=== PATIENT | female | born 1985 | race African-American/Black ===

== ENCOUNTER 2016-11-05 12:28 | Emergency (ER) | payer OTHER ==
[2016-11-05 12:37] VITALS: BP 129/77
--- NOTE | 2016-11-05 13:19 | ER Document Report ---
ED Medical Screen (RME) - General Chief Complaint: Skin Problem Stated Complaint: HEADACHES/STIFF NECK/CHEST PAIN Time Seen by Provider: 11/05/16 13:14 Mode of Arrival: Ambulatory Information source: Patient TRAVEL OUTSIDE OF THE [place] IN LAST 30 DAYS: No - HPI Patient complains to provider of: JARRETT/facial numbness Onset: Other - Pt with c/o JARRETT for the past 1-2 days with neck stiffness yesterday. Saw a tick crawling on her skin yesterday but did not become embedded. Denies fever - Related Data Allergies/Adverse Reactions: No Known Allergies Allergy (Verified 11/05/16 12:36) Past Medical History - Social History Chew tobacco use (# tins/day): No Frequency of alcohol use: None Drug Abuse: None Neurological Medical History: Reports: Hx Migraine Renal/ Medical History: Denies: Hx Peritoneal Dialysis Psychiatric Medical History: Reports: Hx Post Traumatic Stress Disorder Past Surgical History: Reports: Hx Breast Surgery - reduction - Immunizations Hx Diphtheria, Pertussis, Tetanus Vaccination: Yes Physical Exam - Vital signs Vitals: Temp Pulse Resp BP Pulse Ox 98.1 F 77 18 129/77 H 98 11/05/16 12:36 11/05/16 12:36 11/05/16 12:36 11/05/16 12:36 11/05/16 12:36 Course - Vital Signs Vital signs: Temp Pulse Resp BP Pulse Ox 98.1 F 77 18 129/77 H 98 11/05/16 12:36 11/05/16 12:36 11/05/16 12:36 11/05/16 12:36 11/05/16 12:36
[2016-11-05 13:46] LABS: ABSOLUTE EOSINOPHILS # (AUTO) 0.1 10^3/uL (0.0-0.6); ABSOLUTE LYMPHOCYTES (AUTO) 2.2 10^3/uL (0.5-4.7); ABSOLUTE MONOCYTES (AUTO) 0.4 10^3/uL (0.1-1.4); ABSOLUTE NEUT (AUTO) 3.3 10^3/uL (1.7-8.2); APPEARANCE,URINE CLEAR; BASOPHILS % (AUTO) 0.3 % (0-2); BILIRUBIN,URINE NEGATIVE (NEGATIVE); GLUCOSE, URINE NEGATIVE (NEGATIVE); HEMATOCRIT 36.7 % (36.0-47.0); HEMOGLOBIN 11.3 g/dL (12.0-15.5); HGB HCT DIFFERENCE -2.8; KETONES,URINE NEGATIVE (NEGATIVE); LEUKOCYTE ESTERASE,URINE NEGATIVE (NEGATIVE); LYMPHOCYTES % (AUTO) 36.8 % (13-45); MEAN CORPUSCULAR HEMOGLOBIN 22.7 pg (27.0-33.4); MEAN CORPUSCULAR HGB CONC 30.8 g/dL (32.0-36.0); MEAN CORPUSCULAR VOLUME 74 fl (80-97); MONOCYTES % (AUTO) 6.3 % (3-13); NITRITE,URINE NEGATIVE (NEGATIVE); PROTEIN,URINE NEGATIVE (NEGATIVE); RED BLOOD COUNT 4.98 10^6/uL (3.72-5.28); RED CELL DISTRIBUTION WIDTH 19.1 % (11.5-14.0); SEGMENTED NEUTROPHILS % (AUTO) 54.6 % (42-78); URINE SPECIFIC GRAVITY 1.015; UROBILINOGEN,URINE NEGATIVE mg/dL (<2.0); WHITE BLOOD COUNT 6.1 10^3/uL (4.0-10.5)
--- NOTE | 2016-11-05 13:57 | RADIOLOGY REPORT (SQ) ---
EXAM DESCRIPTION: CT HEAD WITHOUT COMPLETED DATE/TIME: 11/05/2016 1:41 pm REASON FOR STUDY: JARRETT/facial numbness COMPARISON: 2015. TECHNIQUE: Axial images acquired through the brain without intravenous contrast. Images reviewed wi th bone, brain and subdural windows. Images stored on PACS. All CT scanners at this facility use dose modulation, iterative reconstruction, and/or weight based d osing when appropriate to reduce radiation dose to as low as reasonably achievable (ALARA). [facility]: Dose Right [facility]: CareDose [facility]: Dose Right [facility]: Teradose 4D [facility]: Smart Ailvxing net RADIATION DOSE: Up-to-date CT equipment and radiation dose reduction techniques were employed. CTDIv ol: 64.6 mGy. DLP: 1163 mGy-cm. mGy. LIMITATIONS: None. FINDINGS: VENTRICLES: Normal size and contour. CEREBRUM: No masses. No hemorrhage. No midline shift. Normal godoy/white matter differentiation. N o evidence for acute infarction. CEREBELLUM: No masses. No hemorrhage. No alteration of density. No evidence for acute infarction. EXTRAAXIAL SPACES: No fluid collections. No masses. ORBITS AND GLOBE: No intra- or extraconal masses. Normal contour of globe without masses. CALVARIUM: No fracture. PARANASAL SINUSES: No fluid or mucosal thickening. SOFT TISSUES: No mass or hematoma. OTHER: No other significant finding. IMPRESSION: NORMAL BRAIN CT WITHOUT CONTRAST. TECHNICAL DOCUMENTATION: JOB ID: [id number] Quality ID # [id number]: Final reports with documentation of one or more dose reduction techniques (e.g., Au tomated exposure control, adjustment of the mA and/or kV according to patient size, use of iterative reconstruction technique) 2010 [employer]- All Rights Reserved
[2016-11-05 14:00] LABS: ALANINE AMINOTRANSFERASE 30 U/L (9-52); ALBUMIN 4.5 g/dL (3.5-5.0); ALKALINE PHOSPHATASE 71 U/L (38-126); ANION GAP 12 (5-19); ASPARTATE AMINO TRANSFERASE 27 U/L (14-36); BILIRUBIN,DIRECT 0.2 mg/dL (0.0-0.4); BILIRUBIN,TOTAL 0.7 mg/dL (0.2-1.3); BLOOD UREA NITROGEN 8 mg/dL (7-20); CALCIUM 9.3 mg/dL (8.4-10.2); CARBON DIOXIDE 28 mmol/L (22-30); CHLORIDE 102 mmol/L (98-107); CREATININE RESULT 0.88 mg/dL (0.52-1.25); GLUCOSE 107 mg/dL (75-110); POTASSIUM 3.9 mmol/L (3.6-5.0); SODIUM 141.7 mmol/L (137-145); TOTAL PROTEIN 8.2 g/dL (6.3-8.2)
[2016-11-05] MEDS ORDERED: KETOROLAC TROMETHAMINE 60 MG/2 ML SDV IM ONE (14:08)
[2016-11-05] MEDS ORDERED: METOCLOPRAMIDE HCL 10 MG TABLET PO ONE (14:08)
--- NOTE | 2016-11-05 14:14 | ER Document Report ---
ED General - General Chief Complaint: Skin Problem Stated Complaint: HEADACHES/STIFF NECK/CHEST PAIN Time Seen by Provider: 11/05/16 13:14 Mode of Arrival: Ambulatory Notes: -year-old female presents with a constellation of symptoms. Primarily she noticed 3 itchy bug bites on her left forearm with swelling 3 days ago which she suspected were due to a tick because she saw a tick crawling on her chest. She did not see an embedded bug. Swelling is decreased and is now mild. No pain. Mild pruritus. She also began feeling fatigued for 3 days generalized weakness. This morning she woke up with chest pressure and left face tingling both of which are resolved. Yesterday and this morning she had a severe headache with right neck stiffness this is also resolved. No photophobia or vomiting. Migraine history. Never had Lyme disease. Denies fevers. Currently is much better than she was. Is not taking anything for migraines. TRAVEL OUTSIDE OF THE [place] IN LAST 30 DAYS: No - Related Data Allergies/Adverse Reactions: No Known Allergies Allergy (Verified 11/05/16 12:36) Past Medical History - General Information source: Patient - Reviewed nurse's notes - Social History Smoking Status: Former Smoker Chew tobacco use (# tins/day): No Frequency of alcohol use: None Drug Abuse: None Family History: None Neurological Medical History: Reports: Hx Migraine Renal/ Medical History: Denies: Hx Peritoneal Dialysis Psychiatric Medical History: Reports: Hx Post Traumatic Stress Disorder Past Surgical History: Reports: Hx Breast Surgery - reduction - Immunizations Hx Diphtheria, Pertussis, Tetanus Vaccination: Yes Review of Systems - Review of Systems Notes: REVIEW OF SYSTEMS GEN: Denies fever, chills, weight loss ENT: Denies sore throat, nasal discharge, ear pain EYES: Denies blurry vision, eye pain, discharge CV: Denies chest pain, palpitations, edema RESP: Denies cough, shortness of breath, wheezing GI: Denies abdominal pain, nausea, vomiting, diarrhea MSK: Denies joint pain/swelling, edema, SKIN: Denies rash, skin lesions LYMPH: Denies swollen glands/lymph nodes NEURO: Headache PSYCH: Denies depression, suicidal or homicidal ideation PHYSICAL EXAMINATION General: No acute distress, well-nourished Head: Atraumatic, normocephalic ENT: Mouth normal, oropharynx moist, no exudates or tonsillar enlargement Neck: No guarding normal movement supple without tenderness or spasm Eyes: Conjunctiva normal, pupils equal, lids normal Neck: No JVD, supple, no guarding CVS: Normal rate, regular rhythm, no murmurs Resp: No resp distress, equal and normal breath sounds bilaterally GI: Nondistended, soft, no tenderness to palpation, no rebound or guarding Ext: No deformities, no edema, normal range of motion in upper and lower ext Back: No CVA or midline TTP Skin: No rash, warm Lymphatic: No lymphadeopathy noted Neuro: Awake, alert. Face symmetric. GCS 15. No numbness. No pronator drift. Intact smile. Physical Exam - Vital signs Vitals: Temp Pulse Resp BP Pulse Ox 98.1 F 77 18 129/77 H 98 11/05/16 12:36 11/05/16 12:36 11/05/16 12:36 11/05/16 12:36 11/05/16 12:36 Course - Re-evaluation Re-evalutation: 11/05/16 14:13 Patient presents with vague symptoms of fatigue and resolving headache and neck stiffness with face tingling. Intact neuro exam. Migraine history. Did not see an embedded tick, and Lyme disease would not be this rapid. Also doubt meningitis due to lack of fever and resolving central nervous system symptoms. Her neck is supple today her when she has no meningismus that does not require lumbar puncture or imaging. In terms of her bug bite there is no sign of sialitis infection or abscess. Will give Toradol and Reglan, labs have been ordered already and I will await the results but did not require antibiotics and can be safely discharged. Reviewed and are all negative. I have discussed with the patient there likely diagnosis, aftercare plan, follow -up plans and my usual and customary return precautions. They verbalized understanding of this. 11/05/16 14:38 - Vital Signs Vital signs: Temp Pulse Resp BP Pulse Ox 98.1 F 77 18 129/77 H 98 11/05/16 12:36 11/05/16 12:36 11/05/16 12:36 11/05/16 12:36 11/05/16 12:36 - Laboratory Result Diagrams: 11/05/16 13:20 11/05/16 13:20 Laboratory results interpreted by me: 11/05/16 11/05/16 13:20 13:20 Hgb 11.3 L MCV 74 L MCH 22.7 L MCHC 30.8 L RDW 19.1 H Urine Ascorbic Acid 20 H Discharge - Discharge Clinical Impression: Insect bite Headache Qualifiers: Headache type: unspecified Headache chronicity pattern: acute headache Intractability: not intractable Qualified Code(s): R51 - Headache Disposition: HOME, SELF-CARE Instructions: Headache ([facility]) Additional Instructions: Your blood lites did not look infected and did not need antibiotics. I do not think you had a significant tick bite either, so Lyme disease is likely not what you have.
--- NOTE | 2016-11-05 14:49 | EKG REPORT ---
SEVERITY:- ABNORMAL ECG - SINUS RHYTHM FIRST DEGREE AV BLOCK PROBABLE LEFT ATRIAL ABNORMALITY : Confirmed by: Gabriel Blackburn MD 05-Nov-2016 14:48:34
== END 2016-11-05 14:47 | disposition home or self-care (01) ==
LOC: ER 12:28
DX: S50.862A Insect bite (nonvenomous) of left forearm, initial encounter (principal); W57.XXXA Bitten or stung by nonvenomous insect and other nonvenomous arthropods, initial encounter; R51 Headache; R53.1 Weakness; R53.83 Other fatigue; R07.89 Other chest pain; R20.2 Paresthesia of skin; M43.6 Torticollis; Z86.69 Personal history of other diseases of the nervous system and sense organs; Z87.891 Personal history of nicotine dependence
CPT/HCPCS: 93005; 99284; 96372; 36415; 85025; 81025; 80053; 81001; 84484; 70450; 93010; J1885

== ENCOUNTER 2018-03-23 08:48 | Emergency (ER) | payer OTHER ==
[2018-03-23] MEDS ORDERED: NAPROXEN 250 MG TABLET PO ONE (10:17)
[2018-03-23] MEDS ORDERED: METHOCARBAMOL 750 MG TABLET PO ONE (10:17)
[2018-03-23] MEDS ORDERED: ACETAMINOPHEN 325 MG TABLET PO ONE (10:17)
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
--- NOTE | 2018-03-23 11:00 | RADIOLOGY REPORT (SQ) ---
EXAM DESCRIPTION: SHOULDER RIGHT 2 OR MORE VIEWS COMPLETED DATE/TIME: 03/23/2018 10:50 am REASON FOR STUDY: right shoulder pain COMPARISON: None. NUMBER OF VIEWS: Three views. TECHNIQUE: Internal rotation, external rotation, and Y view images acquired of the right shoulder. LIMITATIONS: None. FINDINGS: MINERALIZATION: Normal. BONES: No acute fracture or dislocation. No worrisome bone lesions. JOINTS: No dislocation. VISUALIZED LUNGS AND RIBS: No pneumothorax. No rib fracture. SOFT TISSUES: No radiopaque foreign body. OTHER: No other significant finding. IMPRESSION: NEGATIVE STUDY OF THE RIGHT SHOULDER. NO RADIOGRAPHIC EVIDENCE OF ACUTE INJURY. TECHNICAL DOCUMENTATION: JOB ID: [id number] [employer]- All Rights Reserved Reading location - IP/workstation name: [email or web address]
[2018-03-23 11:42] VITALS: BP 117/80
== END 2018-03-23 11:42 | disposition home or self-care (01) ==
LOC: ER 08:48
DX: M25.511 Pain in right shoulder (principal); M54.2 Cervicalgia; V89.2XXA Person injured in unspecified motor-vehicle accident, traffic, initial encounter
CPT/HCPCS: 99283; 73030; J3490

== ENCOUNTER 2018-11-09 11:48 | Emergency (ER) | payer OTHER ==
--- NOTE | 2018-11-09 12:36 | ER Document Report ---
ED Medical Screen (RME) - General Chief Complaint: Chest Pain Stated Complaint: CHEST PAIN Time Seen by Provider: 11/09/18 12:30 Primary Care Provider: CATEHRINE ANDREWS MD [Primary Care Provider] - Follow up as needed TRAVEL OUTSIDE OF THE [place] IN LAST 30 DAYS: No - HPI Notes: 11/09/18 12:33 Patient is a 33-year-old female no significant past medical history who presents complaining of midsternal chest pain, pain between her shoulder blades, and left shoulder pain began today without precipitating event or injury. Patient states that movement makes her pain worse. Patient states that she does feel short of breath, but is primarily because she feels pain on deep inspiration. Denies drug allergies. Denies any prolonged immobilization, distance travel, recent surgery/trauma, personal cancer history, hormone use, smoking, or previous DVT/PE. Denies JARRETT, fever, neck pain, URI, Abd pain, dysuria, back pain, or rash. I have treated and performed a rapid initial assessment of this patient. A comprehensive ED assessment and evaluation of the patient, analysis of test results and completion of medical decision making process will be conducted by additional ED providers. PHYSICAL EXAMINATION: GENERAL: Well-appearing, well-nourished and in no acute distress. A&Ox4. Answers questions appropriately. Chest: + tenderness to palp. LUNGS: Breath sounds clear to auscultation bilaterally and equal. No wheezes rales or rhonchi. HEART: Regular rate and rhythm without murmurs, rubs, gallops. Extremities: No cyanosis, clubbing, or edema b/l. Radha negative bilaterally. No lower extremity asymmetry. NEUROLOGICAL: Normal speech, normal gait. PSYCH: Normal mood, normal affect. - Related Data Allergies/Adverse Reactions: No Known Allergies Allergy (Verified 11/09/18 11:52) Past Medical History Neurological Medical History: Reports: Hx Migraine Renal/ Medical History: Denies: Hx Peritoneal Dialysis Psychiatric Medical History: Reports: Hx Depression - Anxiety, Hx Post Traumatic Stress Disorder Past Surgical History: Reports: Hx Breast Surgery - reduction - Immunizations Hx Diphtheria, Pertussis, Tetanus Vaccination: Yes Physical Exam - Vital signs Vitals: Temp Pulse Resp BP Pulse Ox 98.5 F 73 18 124/94 H 100 11/09/18 11:54 11/09/18 11:54 11/09/18 11:54 11/09/18 11:54 11/09/18 11:54 Course - Vital Signs Vital signs: Temp Pulse Resp BP Pulse Ox 98.5 F 73 18 124/94 H 100 11/09/18 11:54 11/09/18 11:54 11/09/18 11:54 11/09/18 11:54 11/09/18 11:54 Doctor's Discharge - Discharge Referrals: CATHERINE ANDREWS MD [Primary Care Provider] - Follow up as needed
[2018-11-09 13:32] LABS: ABSOLUTE EOSINOPHILS # (AUTO) 0.1 10^3/uL (0.0-0.6); ABSOLUTE LYMPHOCYTES (AUTO) 1.9 10^3/uL (0.5-4.7); ABSOLUTE MONOCYTES (AUTO) 0.8 10^3/uL (0.1-1.4); ABSOLUTE NEUT (AUTO) 5.5 10^3/uL (1.7-8.2); BASOPHILS % (AUTO) 0.4 % (0-2); EOSINOPHILS % (AUTO) 1.1 % (0-6); HEMATOCRIT 39.1 % (36.0-47.0); HEMOGLOBIN 12.5 g/dL (12.0-15.5); LYMPHOCYTES % (AUTO) 22.7 % (13-45); MEAN CORPUSCULAR HGB CONC 31.9 g/dL (32.0-36.0); MEAN CORPUSCULAR VOLUME 81 fl (80-97); MONOCYTES % (AUTO) 9.3 % (3-13); PLATELET COUNT 274 10^3/uL (150-450); RED BLOOD COUNT 4.81 10^6/uL (3.72-5.28); RED CELL DISTRIBUTION WIDTH 15.7 % (11.5-14.0); SEGMENTED NEUTROPHILS % (AUTO) 66.5 % (42-78); TOTAL CELLS COUNTED % (AUTO) 100 %; WHITE BLOOD COUNT 8.2 10^3/uL (4.0-10.5)
--- NOTE | 2018-11-09 13:36 | EKG REPORT ---
SEVERITY:- ABNORMAL ECG - SINUS RHYTHM FIRST DEGREE AV BLOCK : Confirmed by: Gabriel Blackburn MD 09-Nov-2018 13:36:21
[2018-11-09 13:51] LABS: ALANINE AMINOTRANSFERASE 31 U/L (9-52); ALBUMIN 4.1 g/dL (3.5-5.0); ALKALINE PHOSPHATASE 63 U/L (38-126); ANION GAP 7 (5-19); ASPARTATE AMINO TRANSFERASE 29 U/L (14-36); BILIRUBIN,DIRECT 0.2 mg/dL (0.0-0.4); BILIRUBIN,TOTAL 0.6 mg/dL (0.2-1.3); BLOOD UREA NITROGEN 10 mg/dL (7-20); CALCIUM 9.3 mg/dL (8.4-10.2); CARBON DIOXIDE 29 mmol/L (22-30); CHLORIDE 105 mmol/L (98-107); POTASSIUM 4.9 mmol/L (3.6-5.0); TOTAL PROTEIN 6.8 g/dL (6.3-8.2)
[2018-11-09 13:52] LABS: GLUCOSE 69 mg/dL (75-110)
--- NOTE | 2018-11-09 14:05 | RADIOLOGY REPORT (SQ) ---
EXAM DESCRIPTION: CHEST 2 VIEWS COMPLETED DATE/TIME: 11/09/2018 1:20 pm REASON FOR STUDY: CP COMPARISON: 06/11/2013 EXAM PARAMETERS: NUMBER OF VIEWS: two views TECHNIQUE: Digital Frontal and Lateral radiographic views of the chest acquired. RADIATION DOSE: NA LIMITATIONS: none FINDINGS: LUNGS AND PLEURA: No opacities, masses or pneumothorax. No pleural effusion. MEDIASTINUM AND HILAR STRUCTURES: No masses or contour abnormalities. HEART AND VASCULAR STRUCTURES: Heart normal size. No evidence for failure. BONES: No acute findings. HARDWARE: None in the chest. OTHER: No other significant finding. IMPRESSION: No acute abnormality of the lungs. TECHNICAL DOCUMENTATION: JOB ID: [id number] [employer]- All Rights Reserved Reading location - IP/workstation name: [email or web address]
[2018-11-09] MEDS ORDERED: DIAZEPAM INJ 10 MG/2 ML DISP.SYRIN IV ONE (16:44)
[2018-11-09] MEDS ORDERED: KETOROLAC TROMETHAMINE INJ/PF 30 MG/1 ML SDV IV ONE (16:45)
--- NOTE | 2018-11-09 16:49 | ER Document Report ---
ED General - General Chief Complaint: Chest Pain Stated Complaint: CHEST PAIN Time Seen by Provider: 11/09/18 12:30 Primary Care Provider: CATHERINE ANDREWS MD [NO LOCAL MD] - Follow up as needed Mode of Arrival: Ambulatory Information source: Patient, ON LICENSE OF [facility] Records Notes: 33-year-old female with PTSD, migraine headaches, anxiety presents with complaint of chest and back pain that started this morning when she awoke. Patient's pain is located between her shoulder blades and substernally and described as a aching pain that is worse with movement and deep inspiration. Patient has had prior similar symptoms and was evaluated by cardiology in July of this year. She states [place] she had multiple similar episodes. She denies any recent illness, fever, chills, cough, nausea, vomiting, leg swelling, recent travel, estrogen use, recent surgery, history of PE, DVT. Patient denies any known injury. TRAVEL OUTSIDE OF THE [place] IN LAST 30 DAYS: No - HPI Onset: This morning Onset/Duration: Persistent Quality of pain: Sharp Severity: Moderate Pain Level: 2 Associated symptoms: Chest pain, Shortness of breath. denies: Chills, Nonproductive cough, Productive cough, Leg swelling, Nausea, Vomiting Exacerbated by: Movement, Deep breathing Relieved by: Remaining still Similar symptoms previously: Yes Recently seen / treated by doctor: Yes - Related Data Allergies/Adverse Reactions: No Known Allergies Allergy (Verified 11/09/18 11:52) Past Medical History - General Information source: Patient, ON LICENSE OF [facility] Records - Social History Smoking Status: Former Smoker Frequency of alcohol use: Occasional Drug Abuse: None Lives with: Family Family History: None Patient has suicidal ideation: No Patient has homicidal ideation: No Neurological Medical History: Reports: Hx Migraine Renal/ Medical History: Denies: Hx Peritoneal Dialysis Psychiatric Medical History: Reports: Hx Depression - Anxiety, Hx Post Traumatic Stress Disorder Past Surgical History: Reports: Hx Breast Surgery - reduction - Immunizations Hx Diphtheria, Pertussis, Tetanus Vaccination: Yes Review of Systems - Review of Systems Notes: REVIEW OF SYSTEMS: CONSTITUTIONAL : Denies fever, chills, or sweats. Denies recent illness. Denies weight loss, recent hospitalizations. EENT: Denies visual changes, eye pain. Denies sore throat, oral lesions, difficulty swallowing. CARDIOVASCULAR: + chest pain. Denies palpitations. Denies lower extremity edema. RESPIRATORY: Denies cough. Denies shortness of breath, wheezing. GASTROINTESTINAL: Denies abdominal pain or distention. Denies nausea, vomiting, or diarrhea. Denies blood in vomitus, stools, or per rectum. Denies black, tarry stools. Denies constipation. GENITOURINARY: Denies difficulty urinating, painful urination, frequency, blood in urine, or vaginal discharge. MUSCULOSKELETAL: Denies neck pain or stiffness. Denies joint pain or swelling. SKIN: Denies rash, lesions or sores. HEMATOLOGIC : Denies easy bruising or bleeding. LYMPHATIC: Denies swollen glands. NEUROLOGICAL: Denies confusion or altered mental status. Denies loss of consciousness. Denies dizziness or lightheadedness. Denies headache. Denies weakness or paralysis. Denies problems difficulty with ambulation, slurred speech. Denies sensory loss, numbness, or tingling. Denies seizures. PSYCHIATRIC: Denies anxiety or stress. Denies depression, suicidal ideation, or homicidal ideation. Denies visual or auditory hallucinations. Physical Exam - Vital signs Vitals: Temp Pulse Resp BP Pulse Ox 98.5 F 73 18 124/94 H 100 11/09/18 11:54 11/09/18 11:54 11/09/18 11:54 11/09/18 11:54 11/09/18 11:54 - Notes Notes: PHYSICAL EXAMINATION: GENERAL: Well-appearing, well-nourished and in no acute distress. HEAD: Atraumatic, normocephalic. EYES: Pupils equal round and reactive to light, extraocular movements intact, conjunctiva are normal. ENT: Nares patent, oropharynx clear without exudates. Moist mucous membranes. NECK: Normal range of motion, supple without lymphadenopathy LUNGS: Breath sounds clear to auscultation bilaterally and equal. No wheezes rales or rhonchi. Reproducible chest tenderness with palpation to the anterior chest. HEART: Regular rate and rhythm without murmurs ABDOMEN: Soft, nontender, nondistended abdomen. No guarding, no rebound. No masses appreciated. Female : deferred Musculoskeletal: Normal range of motion, no pitting or edema. No cyanosis. Tenderness with palpation to the paraspinal musculature of the thoracic spine bilaterally. NEUROLOGICAL: Cranial nerves grossly intact. Normal speech, normal gait. Normal sensory, motor exams PSYCH: Normal mood, normal affect. SKIN: Warm, Dry, normal turgor, no rashes or lesions noted. Course - Re-evaluation Re-evalutation: Laboratory 11/09/18 11/09/18 11/09/18 12:57 12:57 12:57 WBC 8.2 RBC 4.81 Hgb 12.5 Hct 39.1 MCV 81 MCH 26.0 L MCHC 31.9 L RDW 15.7 H Plt Count 274 Seg Neutrophils % 66.5 Lymphocytes % 22.7 Monocytes % 9.3 Eosinophils % 1.1 Basophils % 0.4 Absolute Neutrophils 5.5 Absolute Lymphocytes 1.9 Absolute Monocytes 0.8 Absolute Eosinophils 0.1 Absolute Basophils 0.0 Sodium 141.0 Potassium 4.9 Chloride 105 Carbon Dioxide 29 Anion Gap 7 BUN 10 Creatinine 1.03 Est GFR ( Amer) > 60 Est GFR (Non-Af Amer) > 60 Glucose 69 L Calcium 9.3 Total Bilirubin 0.6 Direct Bilirubin 0.2 Neonat Total Bilirubin Not Reportable Neonat Direct Bilirubin Not Reportable Neonat Indirect Bili Not Reportable AST 29 ALT 31 Alkaline Phosphatase 63 Troponin I < 0.012 Total Protein 6.8 Albumin 4.1 Serum HCG, Qual 11/09/18 12:57 WBC RBC Hgb Hct MCV MCH MCHC RDW Plt Count Seg Neutrophils % Lymphocytes % Monocytes % Eosinophils % Basophils % Absolute Neutrophils Absolute Lymphocytes Absolute Monocytes Absolute Eosinophils Absolute Basophils Sodium Potassium Chloride Carbon Dioxide Anion Gap BUN Creatinine Est GFR ( Amer) Est GFR (Non-Af Amer) Glucose Calcium Total Bilirubin Direct Bilirubin Neonat Total Bilirubin Neonat Direct Bilirubin Neonat Indirect Bili AST ALT Alkaline Phosphatase Troponin I Total Protein Albumin Serum HCG, Qual NEGATIVE Chest X-Ray 11/09/18 12:48 IMPRESSION: No acute abnormality of the lungs. Temp Pulse Resp BP Pulse Ox 98.5 F 73 18 124/94 H 100 11/09/18 11:54 11/09/18 11:54 11/09/18 11:54 11/09/18 11:54 11/09/18 11:54 11/09/18 16:47 33-year-old female presents with neck and chest pain that started this morning upon awakening. Vital signs reviewed and within normal limits. Patient does not appear toxic or dehydrated. She is in no acute distress. Previous medical records and nursing notes reviewed. Patient denies family history of early cardiac disease, . Patient is PERC negative. Pain is reproducible with palpation. CBC, CMP, cardiac enzymes are unremarkable. Chest x-ray shows no acute abnormality. Patient did receive Valium and Toradol and will be reevaluated. 11/09/18 16:49 HEART Score: History-1 ECG-0 Age-0 Risk Factors-0 Troponin-0 Total: 1 If HEART score is = 3 AND both troponin measurements are normal, the 30 day risk of a major adverse cardiac event (all-cause mortality, myocardial infarcti on or need for coronary revascularization) is < 1% (Sensitivity 100%, NPV 100%). Chest pain in a patient without evidence of cardiac or other serious etiology on workup today. I discussed with patient that, based on their age, risk factors and emergency department testing today, the likelihood that their symptoms are related to a heart attack is very low (estimated risk of heart attack or over the next 30 days of less than 1%). The patient demonstrates decision making capacity and has verbalized an understanding of these risks to me. Based on this, the patient has chosen to follow-up as an outpatient. Usual chest pain return precautions reviewed. The patient states understanding and agreement with this plan. - Vital Signs Vital signs: Temp Pulse Resp BP Pulse Ox 98.5 F 73 18 124/94 H 100 11/09/18 11:54 11/09/18 11:54 11/09/18 11:54 11/09/18 11:54 11/09/18 11:54 - Laboratory Result Diagrams: 11/09/18 12:57 11/09/18 12:57 Laboratory results interpreted by me: 11/09/18 11/09/18 12:57 12:57 MCH 26.0 L MCHC 31.9 L RDW 15.7 H Glucose 69 L - Diagnostic Test Radiology reviewed: Image reviewed, Reports reviewed - EKG Interpretation by Me EKG shows normal: Sinus rhythm Rate: Normal Rhythm: NSR Heart block present: 1st Degree When compared to previous EKG there are: No significant change Discharge - Discharge Clinical Impression: Chest pain Qualifiers: Chest pain type: unspecified Qualified Code(s): R07.9 - Chest pain, unspecified Back pain Qualifiers: Back pain location: thoracic back pain Chronicity: acute Back pain laterality: bilateral Qualified Code(s): M54.6 - Pain in thoracic spine Condition: Good Disposition: HOME, SELF-CARE Instructions: Chest Pain of Unclear Cause ([facility]), Upper Back Strain ([facility]) Additional Instructions: You were seen today for chest pain. The exact cause of your pain is unclear. However, based on your cardiac enzyme testing, chest x-ray, and EKG it does not appear that it is from an immediately life-threatening cause at this time. Although your testing here is normal is critical that you follow-up with your primary care physician for continued evaluation of this chest pain and possible stress testing. I recommended you see your physician within the next 24-48 hours to be evaluated for consideration of a stress test. Please return to emergency department immediately if you have worsening of your chest pain, shortness of breath, vomiting, become unable to exert yourself due to pain or difficulty breathing, you pass out, or have any pain that radiates into your arms, jaw, or back. Please also return if you have any additional symptoms that are concerning to you. Prescriptions: Hydrocodone/Acetaminophen [Stonewall 5-325 mg Tablet] 1 tab PO Q6H #12 tablet Ibuprofen [Motrin 600 Mg Tablet] 600 mg PO TID #15 tablet Forms: Elevated Blood Pressure Referrals: CATHERINE ANDREWS MD [NO LOCAL MD] - Follow up as needed
[2018-11-09 18:29] VITALS: BP 125/93
== END 2018-11-09 18:29 | disposition home or self-care (01) ==
LOC: ER 11:48
DX: R07.2 Precordial pain (principal); M54.6 Pain in thoracic spine; R06.02 Shortness of breath; M54.2 Cervicalgia; I44.0 Atrioventricular block, first degree; Z87.891 Personal history of nicotine dependence
CPT/HCPCS: 93005; 99285; 96374; 96375; 36415; 82962; 84703; 85025; 80053; 84484; 71046; 93010; J3360; J1885

== ENCOUNTER 2019-10-23 11:33 | Emergency (ER) | payer OTHER ==
[2019-10-23] MEDS ORDERED: ASPIRIN 81 MG TABLET, CHEWABLE PO ONE (12:27)
--- NOTE | 2019-10-23 12:29 | ER Document Report ---
ED Medical Screen (RME) - General Chief Complaint: Chest Pain Stated Complaint: CHEST PAIN,LEFT ARM FEELS TINGLY Time Seen by Provider: 10/23/19 12:24 Primary Care Provider: TOÑA,DOUG [Primary Care Provider] - Follow up as needed Notes: HPI: 34-year-old female who relates a history of first-degree heart block presenting to the emergency department complaining of a pressure-like chest pain in the left chest with radiation into the left shoulder and arm. Patient states her left arm feels numb. No shortness of breath. No fever. Symptoms woke her from sleep. No history of reflux disease. Patient states that she has been seen in the emergency department for this previously has not followed up [facility] and has not yet received referrals to cardiology PHYSICAL EXAMINATION: EKG normal sinus rhythm without visible ectopy. Lung sounds are clear to auscultation regular rate and rhythm, no tenderness on palpation of the left chest or arm I have greeted and performed a rapid initial assessment of this patient. A comprehensive ED assessment and evaluation of the patient, analysis of test results and completion of medical decision making process will be conducted by an additional ED providers. TRAVEL OUTSIDE OF THE [place] IN LAST 30 DAYS: No - Related Data Allergies/Adverse Reactions: No Known Allergies Allergy (Verified 11/09/18 11:52) Past Medical History Neurological Medical History: Reports: Hx Migraine Renal/ Medical History: Denies: Hx Peritoneal Dialysis Psychiatric Medical History: Reports: Hx Depression - Anxiety, Hx Post Traumatic Stress Disorder Past Surgical History: Reports: Hx Breast Surgery - reduction - Immunizations Hx Diphtheria, Pertussis, Tetanus Vaccination: Yes Physical Exam - Vital signs Vitals: Temp Pulse Resp BP 99.1 F 62 16 110/77 10/23/19 11:53 10/23/19 11:53 10/23/19 11:53 10/23/19 11:53 Course - Vital Signs Vital signs: Temp Pulse Resp BP Pulse Ox 99.1 F 62 16 110/77 10/23/19 11:53 10/23/19 11:53 10/23/19 11:53 10/23/19 11:53 Doctor's Discharge - Discharge [facility]errals: [facility] [[facility] - Follow up as needed
[2019-10-23 12:40] LABS: ABSOLUTE EOSINOPHILS # (AUTO) 0.1 10^3/uL (0.0-0.6); ABSOLUTE LYMPHOCYTES (AUTO) 2.4 10^3/uL (0.5-4.7); ABSOLUTE MONOCYTES (AUTO) 0.4 10^3/uL (0.1-1.4); ABSOLUTE NEUT (AUTO) 3.6 10^3/uL (1.7-8.2); BASOPHILS % (AUTO) 0.5 % (0-2); EOSINOPHILS % (AUTO) 1.8 % (0-6); HEMATOCRIT 40.8 % (36.0-47.0); HEMOGLOBIN 13.1 g/dL (12.0-15.5); LYMPHOCYTES % (AUTO) 36.4 % (13-45); MEAN CORPUSCULAR HEMOGLOBIN 26.9 pg (27.0-33.4); MEAN CORPUSCULAR HGB CONC 32.2 g/dL (32.0-36.0); MEAN CORPUSCULAR VOLUME 84 fl (80-97); MONOCYTES % (AUTO) 6.4 % (3-13); PLATELET COUNT 277 10^3/uL (150-450); RED BLOOD COUNT 4.89 10^6/uL (3.72-5.28); RED CELL DISTRIBUTION WIDTH 15.2 % (11.5-14.0); SEGMENTED NEUTROPHILS % (AUTO) 54.9 % (42-78); TOTAL CELLS COUNTED % (AUTO) 100 %; WHITE BLOOD COUNT 6.5 10^3/uL (4.0-10.5)
[2019-10-23 12:43] LABS: ALBUMIN 3.4 g/dL (3.5-5.0); ALKALINE PHOSPHATASE 54 U/L (38-126); ASPARTATE AMINO TRANSFERASE 27 U/L (14-36); BILIRUBIN,TOTAL 0.4 mg/dL (0.2-1.3); BLOOD UREA NITROGEN 10 mg/dL (7-20); CALCIUM 8.6 mg/dL (8.4-10.2); CARBON DIOXIDE 26 mmol/L (22-30); CHLORIDE 108 mmol/L (98-107); GLUCOSE 99 mg/dL (75-110); POTASSIUM 4.4 mmol/L (3.6-5.0); TOTAL PROTEIN 6.1 g/dL (6.3-8.2)
[2019-10-23 12:45] LABS: PROTHROMBIN TIME 13.2 SEC (11.4-15.4)
[2019-10-23 12:50] LABS: ANION GAP 2 (5-19)
--- NOTE | 2019-10-23 12:52 | RADIOLOGY REPORT (SQ) ---
EXAM DESCRIPTION: CHEST 2 VIEWS IMAGES COMPLETED DATE/TIME: 10/23/2019 12:41 pm REASON FOR STUDY: chest pain COMPARISON: 11/09/2018 EXAM PARAMETERS: NUMBER OF VIEWS: two views TECHNIQUE: Digital Frontal and Lateral radiographic views of the chest acquired. RADIATION DOSE: NA LIMITATIONS: none FINDINGS: LUNGS AND PLEURA: No opacities, masses or pneumothorax. No pleural effusion. MEDIASTINUM AND HILAR STRUCTURES: No masses or contour abnormalities. HEART AND VASCULAR STRUCTURES: Heart normal size. No evidence for failure. BONES: No acute findings. HARDWARE: None in the chest. OTHER: No other significant finding. IMPRESSION: NO ACUTE RADIOGRAPHIC FINDING IN THE CHEST. TECHNICAL DOCUMENTATION: JOB ID: [id number] 2010 [employer]- All Rights Reserved Reading location - IP/workstation name: [email or web address]
--- NOTE | 2019-10-23 14:27 | ER Document Report ---
ED General - General Chief Complaint: Chest Pain Stated Complaint: CHEST PAIN,LEFT ARM FEELS TINGLY Time Seen by Provider: 10/23/19 12:24 Primary Care Provider: DOUG DING [Primary Care Provider] - Follow up as needed Mode of Arrival: Ambulatory Information source: Patient Notes: Patient is a 34-year-old female presenting to the emergency department chief complaint of chest pain. Patient states it started last night location is mid epigastric to sternum patient states it woke her out of sleep. She states it continues this morning and she has some numbness to the left arm. Patient denies a personal cardiac history other than a first-degree AV block. Patient denies any family cardiac history. TRAVEL OUTSIDE OF THE [place] IN LAST 30 DAYS: No - Related Data Allergies/Adverse Reactions: No Known Allergies Allergy (Verified 11/09/18 11:52) Past Medical History - Social History Smoking Status: Current Every Day Smoker Family History: None Neurological Medical History: Reports: Hx Migraine Renal/ Medical History: Denies: Hx Peritoneal Dialysis Psychiatric Medical History: Reports: Hx Depression - Anxiety, Hx Post Traumatic Stress Disorder Past Surgical History: Reports: Hx Breast Surgery - reduction - Immunizations Hx Diphtheria, Pertussis, Tetanus Vaccination: Yes Physical Exam - Vital signs Vitals: Temp Pulse Resp BP 99.1 F 62 16 110/77 10/23/19 11:53 10/23/19 11:53 10/23/19 11:53 10/23/19 11:53 Course - Re-evaluation Re-evalutation: 10/23/19 17:13 Patient has been maintained in the emergency department on a clinical review nurse while present. Patient has been reevaluated several times while in the emergency department and no signs of decompensation have been noted. After evaluation of laboratory EKG and radiologic studies. Patient has had 2 negative troponins. I see no signs of pneumonia, pneumothorax, acute myocardial infarction, unstable angina dissection or pulmonary embolism, there are no signs of rib fractures, no signs of acute coronary syndrome and at this time feel the patient is stable for discharge. I have discussed these results with the patient answered all questions and patient is agreeable with discharge at this time. Patient should follow-up with her primary care provider in the next several days for continued monitoring. Patient should immediately return to the emergency department for worsening symptoms to include severe chest pain/tightness or discomfort, worsening shortness of breath, fever greater than 101 or other concerning signs or symptoms. - Vital Signs Vital signs: Temp Pulse Resp BP Pulse Ox 99.1 F 62 16 110/77 100 10/23/19 11:53 10/23/19 11:53 10/23/19 11:53 10/23/19 11:53 10/23/19 12:27 - Laboratory Result Diagrams: 10/23/19 11:50 10/23/19 11:50 Laboratory results interpreted by me: 10/23/19 10/23/19 11:50 11:50 MCH 26.9 L RDW 15.2 H Sodium 136.3 L Chloride 108 H Anion Gap 2 L Total Protein 6.1 L Albumin 3.4 L - Diagnostic Test Radiology reviewed: Reports reviewed - EKG Interpretation by Me EKG shows normal: Sinus rhythm Rate: Normal Rhythm: NSR When compared to previous EKG there are: No significant change Additional EKG results interpreted by me: 10/23/19 16:14 EKG compared to prior EKG of November 09, 2018 shows minimal change there is slight change in the ID interval went from 212 ms to 208 ms. Discharge - Discharge Clinical Impression: Chest pain of uncertain etiology Condition: Stable Disposition: HOME, SELF-CARE Instructions: Chest Pain of Unclear Cause ([facility]) Forms: Return to Work [facility]errals: [facility] [[facility]] - Follow up as needed
[2019-10-23 14:53] LABS: APPEARANCE,URINE CLEAR; BILIRUBIN,URINE NEGATIVE (NEGATIVE); COLOR,URINE STRAW; GLUCOSE, URINE NEGATIVE (NEGATIVE); KETONES,URINE NEGATIVE (NEGATIVE); LEUKOCYTE ESTERASE,URINE NEGATIVE (NEGATIVE); NITRITE,URINE NEGATIVE (NEGATIVE); PROTEIN,URINE NEGATIVE (NEGATIVE); URINE SPECIFIC GRAVITY 1.005; UROBILINOGEN,URINE NEGATIVE mg/dL (<2.0)
[2019-10-23 15:13] LABS: URINE AMPHETAMINES SCREEN NEGATIVE; URINE BARBITURATES SCREEN NEGATIVE; URINE BENZODIAZEPINES SCREEN NEGATIVE; URINE COCAINE SCREEN NEGATIVE; URINE MARIJUANA (THC) SCREEN NEGATIVE; URINE METHADONE SCREEN NEGATIVE; URINE PHENCYCLIDINE SCREEN NEGATIVE
[2019-10-23 17:20] VITALS: BP 108/77
--- NOTE | 2019-10-23 21:54 | EKG REPORT ---
SEVERITY:- NORMAL ECG - SINUS RHYTHM : Confirmed by: Elena Nicholson MD 23-Oct-2019 21:53:54
== END 2019-10-23 17:33 | disposition home or self-care (01) ==
LOC: ER 11:33
DX: R07.9 Chest pain, unspecified (principal); R10.13 Epigastric pain; R20.0 Anesthesia of skin; F17.200 Nicotine dependence, unspecified, uncomplicated; Z86.79 Personal history of other diseases of the circulatory system
CPT/HCPCS: 36415; 71046; 80053; 80307; 81001; 84484; 84703; 85025; 85610; 93005; 93010; 99285

== ENCOUNTER 2020-02-17 03:48 | Emergency (ER) | payer OTHER ==
[2020-02-17] MEDS ORDERED: HYDROCODONE/ACETAMINOPHEN 5-325 MG TABLET PO ONE (05:30)
--- NOTE | 2020-02-17 05:32 | ER Document Report ---
ED Medical Screen (RME) - General Chief Complaint: Chest Pain Stated Complaint: CHEST PAIN / NECK PAIN Time Seen by Provider: 02/17/20 05:29 Primary Care Provider: DOUG DING [Primary Care Provider] - Follow up as needed Notes: 34-year-old female with chief complaint of sharp pain in her neck that started yesterday, pain goes into her left shoulder and left arm. She states she is getting tingling and numbness sensations in her left arm as well. She denies injury. She has had this problem in the past but has not had any imaging of her neck. Denies any other symptoms to me. Patient states she is uncomfortable and is very difficult to get a history from on my triage evaluation. Denies . TRAVEL OUTSIDE OF THE [place] IN LAST 30 DAYS: No - Related Data Allergies/Adverse Reactions: No Known Allergies Allergy (Verified 11/09/18 11:52) Past Medical History Neurological Medical History: Reports: Hx Migraine Renal/ Medical History: Denies: Hx Peritoneal Dialysis Psychiatric Medical History: Reports: Hx Depression - Anxiety, Hx Post Traumatic Stress Disorder Past Surgical History: Reports: Hx Breast Surgery - reduction - Immunizations Hx Diphtheria, Pertussis, Tetanus Vaccination: Yes Physical Exam - Vital signs Vitals: Temp Pulse Resp BP Pulse Ox 97.7 F 50 L 16 122/83 100 02/17/20 04:11 02/17/20 04:11 02/17/20 04:11 02/17/20 04:11 02/17/20 04:11 - Back Back: Other - Patient seems to have mainly tenderness along the left paracervical and left trapezius muscles, refuses to lift or move the left arm for me, will not cooperate completely with the exam, exam nonspecific as result. Course - Re-evaluation Re-evalutation: I have greeted and performed a rapid initial assessment of this patient. A comprehensive ED assessment and evaluation of the patient, analysis of test results and completion of the medical decision making process will be conducted by additional ED providers. - Vital Signs Vital signs: Temp Pulse Resp BP Pulse Ox 97.7 F 50 L 16 122/83 100 02/17/20 04:11 02/17/20 04:11 02/17/20 04:11 02/17/20 04:11 02/17/20 04:11 Doctor's Discharge - Discharge [facility]errals: [facility] [[facility] - Follow up as needed
--- NOTE | 2020-02-17 06:08 | RADIOLOGY REPORT (SQ) ---
CT cervical spine without contrast on 02/17/2020 at 5:37 AM CLINICAL INDICATION: Neck pain, left arm numbness TECHNIQUE: Multiple axial images are obtained throughout the cervical spine without the administration of contrast. Sagittal and coronal reformatted images are also performed and reviewed. This exam was performed according to our departmental dose-optimization program, which includes automated exposure control, adjustment of the mA and/or kV according to patient size and/or use of iterative reconstruction technique. Total DLP is 447.35 mGy*cm. COMPARISON: None FINDINGS: There is mild reversal of the normal cervical lordosis. Reformatted images reveal otherwise normal alignment of the cervical spine. There is no prevertebral soft tissue swelling. There are no acute fracture lines. No definite disc herniation is noted. No level of significant canal stenosis or foraminal narrowing is noted. IMPRESSION: No acute abnormality.
[2020-02-17] MEDS ORDERED: KETOROLAC TROMETHAMINE 60 MG/2 ML SDV IM ONE (06:51)
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
[2020-02-17 07:07] VITALS: BP 140/95
--- NOTE | 2020-02-17 07:14 | EKG REPORT ---
SEVERITY:- NORMAL ECG - SINUS RHYTHM : Confirmed by: Gabriel Blackburn MD 17-Feb-2020 07:13:52
== END 2020-02-17 07:24 | disposition home or self-care (01) ==
LOC: ER 03:48
DX: M54.12 Radiculopathy, cervical region (principal); R07.9 Chest pain, unspecified; M54.2 Cervicalgia; F17.200 Nicotine dependence, unspecified, uncomplicated
CPT/HCPCS: 93005; 99285; 96372; 72125; 93010; J1885